=== PATIENT | male | born 1965 | race African-American/Black ===

== ENCOUNTER 2024-01-24 16:12 | Inpatient (IN) | payer MEDICAID, OTHER ==
[~2024-01-24] VITALS: Ht 182.9 cm; Wt 141.5 kg
[2024-01-24] MEDS: ONDANSETRON HCL/PF 4 MG/2 ML VIAL IV ONE (16:45)
[2024-01-24 16:46] LABS: BASOPHILS # (AUTO) 0.1 K/uL (0.0-0.2); BASOPHILS % (AUTO) 1.4 % (0.0-2.0); EOSINOPHILS # (AUTO) 0.2 K/uL (0.0-0.7); EOSINOPHILS % (AUTO) 2.2 % (0.0-6.0); HEMATOCRIT 46 % (39-51); HEMOGLOBIN 15.1 g/dL (13.5-17.5); LYMPHOCYTES % (AUTO) 22.9 % (20.0-44.0); MEAN CORPUSCULAR HEMOGLOBIN 29 PG (26.0-33.0); MEAN CORPUSCULAR HGB CONC 33 g/dl (31.0-36.0); MEAN CORPUSCULAR VOLUME 90 fL (80-96); MONOCYTES # (AUTO) 0.4 K/uL (0.1-1.30); MONOCYTES % (AUTO) 4.9 % (2.0-12.0); NEUTROPHILS # (AUTO) 5.9 K/uL (1.8-8.9); NEUTROPHILS % (AUTO) 68.6 % (43.0-81.0); PLATELET COUNT (AUTO) 273 K/uL (150-450); RED BLOOD CELL COUNT(AUTO) 5.12 MIL/uL (4.5-6.0); RED CELL DISTRIBUTION WIDTH 14.9 % (11.5-15.0); WHITE BLOOD COUNT (AUTO) 8.5 K/uL (4.3-11.0)
[2024-01-24] MEDS ORDERED: ONDANSETRON HCL/PF 4 MG/2 ML VIAL ONE (16:46)
[2024-01-24] MEDS: ENALAPRILAT INJ (1.25 MG/ML) 1.25 MG/ML VIAL IV PRN (16:48)
[2024-01-24] MEDS ORDERED: NITROGLYCERIN 0.4 MG/TAB BOTTLE ONE (16:50)
[2024-01-24] MEDS ORDERED: ENALAPRILAT INJ (1.25 MG/ML) 1.25 MG/ML VIAL IV ONE (16:50)
[2024-01-24] MEDS ORDERED: ASPIRIN 325 MG TABLET ONE (16:50)
[2024-01-24] MEDS: ASPIRIN 325 MG TABLET PO ONE (16:52)
[2024-01-24] MEDS: NITROGLYCERIN 0.4 MG/TAB BOTTLE SL ONE (16:55)
[2024-01-24 17:02] LABS: INR 0.96 (0.91-1.10); PARTIAL THROMBOPLASTIN TIME 27.6 SEC (24.3-34.3); PROTHROMBIN TIME 9.9 SECS (9.2-11.1)
[2024-01-24 17:10] LABS: ALBUMIN 3.6 g/dL (3.4-5.0); BILIRUBIN,TOTAL 0.6 mg/dL (0.2-1.0); TOTAL PROTEIN, SERUM 8.2 g/dL (6.4-8.2)
[2024-01-24 18:06] LABS: CALCIUM, SERUM 8.5 mg/dL (8.5-10.1); CARBON DIOXIDE 25 mmol/L (21-32); CHLORIDE 104 mmol/L (98-107); CREATININE 1.2 mg/dL (0.6-1.3); GLUCOSE 137 mg/dL (74-106); POTASSIUM 4.3 mmol/L (3.5-5.1); SODIUM SERUM 138 mmol/L (136-145); UREA NITROGEN, BLOOD 11 mg/dL (7-18)
[2024-01-24] MEDS ORDERED: ENOXAPARIN SODIUM 40 MG/0.4 ML DISP.SYRIN SQ ONE (18:57)
[2024-01-24] MEDS: ENOXAPARIN SODIUM 40 MG/0.4 ML DISP.SYRIN SQ SCH (18:59)
[2024-01-24] MEDS ORDERED: Z GUARD REMEDY 4 OZ OINT TP PRN (19:00)
[2024-01-24] MEDS ORDERED: MAG HYDROX/AL HYDROX/SIMETH 30 ML UDC PO PRN (19:00)
[2024-01-24] MEDS ORDERED: DEXTROSE 50%-WATER 50 ML DISP.SYRIN IV PRN (19:00)
[2024-01-24] MEDS ORDERED: MAGNESIUM HYDROXIDE 30 ML UDC PO PRN (19:00)
[2024-01-24 21:30] VITALS: BP 182/97; TEMP 97.3; O2SAT 97
[2024-01-24] MEDS: hydrALAZINE HCL 25 MG TABLET PO PRN (22:19)
[2024-01-24] MEDS: BLOOD SUGAR DIAGNOSTIC 1 EACH STRIP VI SCH (22:19)
[2024-01-24] MEDS: *INSULIN REGULAR(HUMULIN R)HUM 100 UNIT/ML VIAL SQ PRN (22:25)
[2024-01-25] MEDS: hydrALAZINE HCL IV 20 MG VIAL IV ONE (00:20)
[2024-01-25] MEDS: ONDANSETRON HCL/PF 4 MG/2 ML VIAL IVP PRN (01:05)
[2024-01-25] MEDS: ZOLPIDEM TARTRATE 5 MG TABLET PO PRN (01:08)
[2024-01-25] MEDS: METOCLOPRAMIDE HCL 10 MG/2 ML VIAL IV ONE (02:37)
[2024-01-25 04:55] VITALS: BP 176/76; TEMP 98.8; O2SAT 98
[2024-01-25 07:28] LABS: BASOPHILS # (AUTO) 0.1 K/uL (0.0-0.2); BASOPHILS % (AUTO) 0.6 % (0.0-2.0); HEMATOCRIT 46 % (39-51); HEMOGLOBIN 15.2 g/dL (13.5-17.5); LYMPHOCYTES # (AUTO) 1.1 K/uL (0.8-4.8); LYMPHOCYTES % (AUTO) 11.7 % (20.0-44.0); MEAN CORPUSCULAR HEMOGLOBIN 30 PG (26.0-33.0); MEAN CORPUSCULAR HGB CONC 33 g/dl (31.0-36.0); MEAN CORPUSCULAR VOLUME 91 fL (80-96); MONOCYTES # (AUTO) 0.3 K/uL (0.1-1.30); NEUTROPHILS # (AUTO) 7.8 K/uL (1.8-8.9); NEUTROPHILS % (AUTO) 84.7 % (43.0-81.0); PLATELET COUNT (AUTO) 261 K/uL (150-450); RED CELL DISTRIBUTION WIDTH 14.7 % (11.5-15.0); WHITE BLOOD COUNT (AUTO) 9.2 K/uL (4.3-11.0)
[2024-01-25] MEDS: INSULIN REGULAR, HUMAN 100 UNIT/ML 3 ML VIAL SQ PRN (07:39)
[2024-01-25 07:51] LABS: CALCIUM, SERUM 8.9 mg/dL (8.5-10.1); PHOSPHORUS 3.1 mg/dL (2.5-4.9); POTASSIUM 3.9 mmol/L (3.5-5.1)
[2024-01-25] MEDS: PANTOPRAZOLE 40 MG TABLET.DR PO SCH (07:51)
[2024-01-25 08:00] VITALS: BP 169/79; TEMP 98.2; O2SAT 94
[2024-01-25] MEDS: ASPIRIN 81 MG TAB.CHEW PO SCH (08:10)
[2024-01-25 08:14] LABS: THYROID STIMULATING HORMONE 0.644 uIU/mL (0.358-3.74)
[2024-01-25] MEDS: METOCLOPRAMIDE HCL 10 MG/2 ML VIAL IV SCH (11:30)
[2024-01-25] MEDS ORDERED: HYDROMORPHONE INJ 2 MG/ML DISP.SYRIN IV ONE (11:45)
[2024-01-25] MEDS ORDERED: IV NS 0.9% 1,000 ML BAG IV SCH (12:00)
[2024-01-25] MEDS: IV NS 0.9% 1,000 ML IV PRN (12:25)
[2024-01-25 16:00] VITALS: BP 161/84; TEMP 98.2; O2SAT 94
[2024-01-25] MEDS ORDERED: CLONIDINE HCL 0.1 MG TABLET PO PRN (19:00)
[2024-01-25] MEDS: ENOXAPARIN SODIUM 120 MG/0.8 ML DISP.SYRIN SQ SCH (20:51)
[2024-01-25] MEDS ORDERED: ENOXAPARIN SODIUM 40 MG/0.4 ML DISP.SYRIN SQ SCH (21:00)
[2024-01-25 22:18] VITALS: BP 141/68; TEMP 99.7; O2SAT 97
[2024-01-26 06:20] LABS: ALBUMIN 2.9 g/dL (3.4-5.0); BILIRUBIN,DIRECT 0.2 mg/dL (0.0-0.2); BILIRUBIN,TOTAL 0.8 mg/dL (0.2-1.0); CALCIUM, SERUM 8.2 mg/dL (8.5-10.1); CREATININE 1.2 mg/dL (0.6-1.3); POTASSIUM 3.4 mmol/L (3.5-5.1)
[2024-01-26 06:23] LABS: BASOPHILS # (AUTO) 0.1 K/uL (0.0-0.2); BASOPHILS % (AUTO) 0.8 % (0.0-2.0); EOSINOPHILS # (AUTO) 0.1 K/uL (0.0-0.7); EOSINOPHILS % (AUTO) 0.8 % (0.0-6.0); HEMATOCRIT 46 % (39-51); HEMOGLOBIN 15.1 g/dL (13.5-17.5); LYMPHOCYTES # (AUTO) 3.6 K/uL (0.8-4.8); LYMPHOCYTES % (AUTO) 35.5 % (20.0-44.0); MEAN CORPUSCULAR HEMOGLOBIN 30 PG (26.0-33.0); MEAN CORPUSCULAR HGB CONC 33 g/dl (31.0-36.0); MEAN CORPUSCULAR VOLUME 91 fL (80-96); MONOCYTES # (AUTO) 0.7 K/uL (0.1-1.30); MONOCYTES % (AUTO) 6.8 % (2.0-12.0); NEUTROPHILS # (AUTO) 5.7 K/uL (1.8-8.9); NEUTROPHILS % (AUTO) 56.1 % (43.0-81.0); PLATELET COUNT (AUTO) 249 K/uL (150-450); RED BLOOD CELL COUNT(AUTO) 5.01 MIL/uL (4.5-6.0); RED CELL DISTRIBUTION WIDTH 14.3 % (11.5-15.0); WHITE BLOOD COUNT (AUTO) 10.1 K/uL (4.3-11.0)
[2024-01-26 08:00] VITALS: BP 156/85; TEMP 98.2; O2SAT 94
[2024-01-26] MEDS: POTASSIUM CL. PREMIX PERIPHER. 50 ML IV SCH (09:51)
[2024-01-26] MEDS ORDERED: IOHEXOL-300 100 ML VIAL IV ONE (11:23)
[2024-01-26] MEDS ORDERED: IV NS 0.9% 250 ML IV ONE (11:24)
[2024-01-26] MEDS ORDERED: CT SWABBABLE VALVE TRANS SET 1 EA INFUS.SET MC ONE (11:24)
[2024-01-26 16:00] VITALS: BP 162/84; TEMP 99; O2SAT 98
[2024-01-26 17:30] VITALS: BP 149/79
[2024-01-26 18:02] VITALS: BP 149/79
[2024-01-26 20:00] VITALS: BP 148/75; TEMP 99; O2SAT 94
[2024-01-27] VITALS (8 sets, daily range): BP systolic 121–170; BP diastolic 69–92; TEMP 97.8–98.8; O2SAT 94–99
[2024-01-27] MEDS: ACETAMINOPHEN 325 MG TABLET PO PRN (06:25)
[2024-01-27 06:54] LABS: BASOPHILS # (AUTO) 0.1 K/uL (0.0-0.2); BASOPHILS % (AUTO) 0.8 % (0.0-2.0); EOSINOPHILS # (AUTO) 0.3 K/uL (0.0-0.7); EOSINOPHILS % (AUTO) 3.8 % (0.0-6.0); HEMATOCRIT 45 % (39-51); LYMPHOCYTES # (AUTO) 3.5 K/uL (0.8-4.8); LYMPHOCYTES % (AUTO) 42.6 % (20.0-44.0); MEAN CORPUSCULAR HEMOGLOBIN 30 PG (26.0-33.0); MEAN CORPUSCULAR HGB CONC 34 g/dl (31.0-36.0); MEAN CORPUSCULAR VOLUME 91 fL (80-96); MONOCYTES # (AUTO) 0.6 K/uL (0.1-1.30); MONOCYTES % (AUTO) 6.6 % (2.0-12.0); NEUTROPHILS # (AUTO) 3.8 K/uL (1.8-8.9); NEUTROPHILS % (AUTO) 46.2 % (43.0-81.0); PLATELET COUNT (AUTO) 246 K/uL (150-450); RED BLOOD CELL COUNT(AUTO) 4.96 MIL/uL (4.5-6.0); RED CELL DISTRIBUTION WIDTH 14.5 % (11.5-15.0); WHITE BLOOD COUNT (AUTO) 8.3 K/uL (4.3-11.0)
[2024-01-27 07:28] LABS: ALBUMIN 2.8 g/dL (3.4-5.0); BILIRUBIN,TOTAL 0.7 mg/dL (0.2-1.0); CALCIUM, SERUM 8.2 mg/dL (8.5-10.1); CREATININE 1.1 mg/dL (0.6-1.3); MAGNESIUM 2.1 mg/dL (1.8-2.4); PHOSPHORUS 3.9 mg/dL (2.5-4.9); POTASSIUM 3.5 mmol/L (3.5-5.1); TOTAL PROTEIN, SERUM 6.8 g/dL (6.4-8.2)
[2024-01-27 08:06] LABS: CARBOHYDRATE AG 19-9 <2 U/mL (0-35)
[2024-01-27 09:10] LABS: AFP, TUMOR MARKER 2.8 ng/mL (0.0-8.4)
[2024-01-27] MEDS ORDERED: CLONIDINE HCL 0.1 MG TABLET PO PRN (10:30)
[2024-01-27] MEDS: METOPROLOL TARTRATE INJ 5 MG/5 ML AMPUL IVP PRN (10:40)
[2024-01-27] MEDS ORDERED: CT SWABBABLE VALVE TRANS SET 1 EA INFUS.SET MC ONE (10:45)
[2024-01-27] MEDS ORDERED: NITROGLYCERIN 0.4 MG/TAB BOTTLE ONE (10:45)
[2024-01-27] MEDS ORDERED: METOPROLOL TARTRATE INJ 5 MG/5 ML AMPUL ONE ×2 (10:45→10:56)
[2024-01-27] MEDS ORDERED: IOHEXOL-350 100 ML VIAL IV ONE (10:45)
[2024-01-27] MEDS ORDERED: IV NS 0.9% 250 ML IV ONE (10:46)
[2024-01-27] MEDS: NITROGLYCERIN 0.4 MG/TAB BOTTLE SL ONE (10:56)
[2024-01-27] MEDS: METOPROLOL TARTRATE 50 MG TABLET PO SCH (12:42)
[2024-01-27] MEDS ORDERED: METO50TA16 PO (18:15)
[2024-01-27] MEDS ORDERED: NIFE-35 PO (18:15)
[2024-01-27] MEDS ORDERED: ASPI-1169 PO (18:15)
[2024-01-28] MEDS ORDERED: ENOXAPARIN SODIUM 40 MG/0.4 ML DISP.SYRIN SQ SCH (09:30)
== END 2024-01-27 18:47 | disposition home or self-care (01) | DRG 190 ==
LOC: EDBD 16:12 → ER 16:12 → TELE 20:34 → MED 01-25 17:06 → TELE 01-26 09:53
PROVIDERS: ADMIT Student in an Organized Health Care Education/Training Program; ATTEND Student in an Organized Health Care Education/Training Program
DX: I25.119 Atherosclerotic heart disease of native coronary artery with unspecified angina pectoris (principal); I21.A1 Myocardial infarction type 2; I25.10 Atherosclerotic heart disease of native coronary artery without angina pectoris; E11.9 Type 2 diabetes mellitus without complications; D18.03 Hemangioma of intra-abdominal structures; I16.0 Hypertensive urgency; I25.83 Coronary atherosclerosis due to lipid rich plaque; K57.30 Diverticulosis of large intestine without perforation or abscess without bleeding; K80.20 Calculus of gallbladder without cholecystitis without obstruction; K43.9 Ventral hernia without obstruction or gangrene; E66.9 Obesity, unspecified; Z68.41 Body mass index [BMI] 40.0-44.9, adult
CPT/HCPCS: 36415; 71045-TC; 71270-TC; 74178; 75574; 80048-TC; 80053-TC; 80076-TC; 82105; 82378; 82962-TC; 83690-TC; 83735-TC; 84100-TC; 84443-TC; 84484-TC; 85025-TC; 85730-TC; 86301; 93307-TC; A4223; G0378; J0360; J1650; J1815; J2405; J2765; J3480; J3490; J7030; J7050; Q9967

== ENCOUNTER 2024-05-16 21:56 | Inpatient (IN) | payer OTHER ==
[~2024-05-16] VITALS: Ht 182.9 cm; Wt 143.3 kg
[~2024-05-16 21:56] MED LIST: ASPI-1169 PO; METO50TA16 PO; NIFE-35 PO
[2024-05-16] MEDS ORDERED: NITROGLYCERIN 0.4 MG/TAB BOTTLE ONE (23:17)
[2024-05-16] MEDS ORDERED: ONDANSETRON HCL/PF 4 MG/2 ML VIAL ONE (23:17)
[2024-05-16] MEDS ORDERED: ASPIRIN 325 MG TABLET ONE (23:18)
[2024-05-16 23:27] LABS: BASOPHILS # (AUTO) 0.1 K/uL (0.0-0.2); BASOPHILS % (AUTO) 1.2 % (0.0-2.0); EOSINOPHILS % (AUTO) 0.2 % (0.0-6.0); HEMATOCRIT 44 % (39-51); HEMOGLOBIN 14.5 g/dL (13.5-17.5); LYMPHOCYTES # (AUTO) 1.4 K/uL (0.8-4.8); LYMPHOCYTES % (AUTO) 14.2 % (20.0-44.0); MEAN CORPUSCULAR HEMOGLOBIN 30 PG (26.0-33.0); MEAN CORPUSCULAR HGB CONC 33 g/dl (31.0-36.0); MEAN CORPUSCULAR VOLUME 92 fL (80-96); MONOCYTES # (AUTO) 0.3 K/uL (0.1-1.30); MONOCYTES % (AUTO) 2.7 % (2.0-12.0); NEUTROPHILS % (AUTO) 81.7 % (43.0-81.0); PLATELET COUNT (AUTO) 278 K/uL (150-450); RED BLOOD CELL COUNT(AUTO) 4.79 MIL/uL (4.5-6.0); RED CELL DISTRIBUTION WIDTH 15.2 % (11.5-15.0); WHITE BLOOD COUNT (AUTO) 9.8 K/uL (4.3-11.0)
[2024-05-16] MEDS: NITROGLYCERIN 0.4 MG/TAB BOTTLE SL ONE (23:29)
[2024-05-16] MEDS: ASPIRIN 325 MG TABLET PO ONE (23:29)
[2024-05-16] MEDS: ONDANSETRON HCL/PF 4 MG/2 ML VIAL IVP ONE (23:30)
[2024-05-16 23:59] LABS: CALCIUM, SERUM 8.6 mg/dL (8.5-10.1); CARBON DIOXIDE 23 mmol/L (21-32); CHLORIDE 102 mmol/L (98-107); GLUCOSE 184 mg/dL (74-106); POTASSIUM 3.8 mmol/L (3.5-5.1); SODIUM SERUM 138 mmol/L (136-145); UREA NITROGEN, BLOOD 9 mg/dL (7-18)
[2024-05-17 00:24] LABS: ALANINE AMINOTRANSFERASE 22 U/L (12-78); ALBUMIN 3.6 g/dL (3.4-5.0); ALKALINE PHOSPHATASE 102 U/L (46-116); ASPARTATE AMINOTRANSFERASE 13 U/L (15-37); BILIRUBIN,DIRECT 0.2 mg/dL (0.0-0.2); BILIRUBIN,TOTAL 0.6 mg/dL (0.2-1.0); NT-PRO BNP 499 pg/mL (0-125); TOTAL PROTEIN, SERUM 8.5 g/dL (6.4-8.2)
[2024-05-17 00:25] VITALS: BP 106/54; TEMP 98.2; O2SAT 96
[2024-05-17] MEDS ORDERED: ONDANSETRON HCL/PF 4 MG/2 ML VIAL ONE (00:37)
[2024-05-17] MEDS: ONDANSETRON HCL/PF 4 MG/2 ML VIAL IV ONE (00:48)
[2024-05-17] MEDS ORDERED: Z GUARD REMEDY 4 OZ OINT TP PRN (01:00)
[2024-05-17] MEDS: hydrALAZINE HCL IV 20 MG VIAL IV ONE (01:44)
[2024-05-17] MEDS: MORPHINE SULFATE INJ 2 MG/ML DISP.SYRIN IV PRN (04:30)
[2024-05-17 05:00] VITALS: BP 157/76; TEMP 97.9; O2SAT 98
[2024-05-17 07:30] VITALS: BP 174/90; TEMP 98.6; O2SAT 96
[2024-05-17 08:25] VITALS: BP 119/64; TEMP 99.1; O2SAT 95
[2024-05-17] MEDS: NIFEdipine XL (30MG) 30 MG TAB PO SCH (09:12)
[2024-05-17] MEDS: METOPROLOL TARTRATE 50 MG TABLET PO SCH (09:12)
[2024-05-17] MEDS: PANTOPRAZOLE 40 MG VIAL IV SCH (09:12)
[2024-05-17] MEDS: ASPIRIN 81 MG TAB.CHEW PO SCH (09:13)
[2024-05-17] MEDS: hydrALAZINE HCL 50 MG TABLET PO SCH (10:35)
[2024-05-17] MEDS: HYDROCHLOROTHIAZIDE 25 MG TABLET PO SCH (10:36)
[2024-05-17] MEDS: ATORVASTATIN 10 MG TABLET PO SCH (10:36)
[2024-05-17 10:45] LABS: BASOPHILS # (AUTO) 0.1 K/uL (0.0-0.2); BASOPHILS % (AUTO) 0.8 % (0.0-2.0); HEMATOCRIT 44 % (39-51); HEMOGLOBIN 14.7 g/dL (13.5-17.5); LYMPHOCYTES # (AUTO) 1.2 K/uL (0.8-4.8); LYMPHOCYTES % (AUTO) 10.5 % (20.0-44.0); MEAN CORPUSCULAR HEMOGLOBIN 31 PG (26.0-33.0); MEAN CORPUSCULAR HGB CONC 34 g/dl (31.0-36.0); MEAN CORPUSCULAR VOLUME 92 fL (80-96); MONOCYTES # (AUTO) 0.4 K/uL (0.1-1.30); MONOCYTES % (AUTO) 3.6 % (2.0-12.0); NEUTROPHILS # (AUTO) 9.8 K/uL (1.8-8.9); NEUTROPHILS % (AUTO) 85.1 % (43.0-81.0); PLATELET COUNT (AUTO) 268 K/uL (150-450); RED BLOOD CELL COUNT(AUTO) 4.78 MIL/uL (4.5-6.0); RED CELL DISTRIBUTION WIDTH 14.8 % (11.5-15.0); WHITE BLOOD COUNT (AUTO) 11.5 K/uL (4.3-11.0)
[2024-05-17 10:55] LABS: CALCIUM, SERUM 8.5 mg/dL (8.5-10.1); CREATININE 0.8 mg/dL (0.6-1.3); POTASSIUM 3.8 mmol/L (3.5-5.1)
[2024-05-17 11:01] LABS: ALBUMIN 3.3 g/dL (3.4-5.0); BILIRUBIN,TOTAL 0.7 mg/dL (0.2-1.0); MAGNESIUM 2.3 mg/dL (1.8-2.4); PHOSPHORUS 3.4 mg/dL (2.5-4.9); TOTAL PROTEIN, SERUM 8.1 g/dL (6.4-8.2)
[2024-05-17] MEDS: ONDANSETRON HCL/PF 4 MG/2 ML VIAL IVP PRN (14:36)
[2024-05-17] MEDS: MAG HYDROX/AL HYDROX/SIMETH 30 ML UDC PO PRN (15:36)
[2024-05-17] MEDS: ACETAMINOPHEN 325 MG TABLET PO PRN (15:36)
[2024-05-17 16:00] VITALS: BP 164/71; TEMP 98.6; O2SAT 95
[2024-05-17] MEDS: NITROGLYCERIN 0.4 MG/TAB BOTTLE SL PRN (16:58)
[2024-05-17] MEDS ORDERED: HEPARIN INFUSION/D5W 500 ML IV PRN (17:00)
[2024-05-17 17:31] LABS: INR 0.99 (0.91-1.10); PARTIAL THROMBOPLASTIN TIME 29.4 SEC (24.3-34.3); PROTHROMBIN TIME 10.5 SECS (9.2-11.1)
[2024-05-17] MEDS: predniSONE 20 MG TABLET PO ONE (20:39)
[2024-05-18] MEDS: predniSONE 20 MG TABLET PO ONE ×2 (03:32→08:56)
[2024-05-18 04:30] VITALS: BP 131/73; TEMP 98.4; O2SAT 98
[2024-05-18 06:46] LABS: BASOPHILS % (AUTO) 0.4 % (0.0-2.0); HEMATOCRIT 48 % (39-51); HEMOGLOBIN 16.2 g/dL (13.5-17.5); LYMPHOCYTES # (AUTO) 1.1 K/uL (0.8-4.8); LYMPHOCYTES % (AUTO) 10.4 % (20.0-44.0); MEAN CORPUSCULAR HEMOGLOBIN 31 PG (26.0-33.0); MEAN CORPUSCULAR HGB CONC 34 g/dl (31.0-36.0); MEAN CORPUSCULAR VOLUME 91 fL (80-96); MONOCYTES # (AUTO) 0.2 K/uL (0.1-1.30); MONOCYTES % (AUTO) 1.5 % (2.0-12.0); NEUTROPHILS # (AUTO) 9.5 K/uL (1.8-8.9); NEUTROPHILS % (AUTO) 87.7 % (43.0-81.0); PLATELET COUNT (AUTO) 310 K/uL (150-450); RED BLOOD CELL COUNT(AUTO) 5.21 MIL/uL (4.5-6.0); RED CELL DISTRIBUTION WIDTH 15.1 % (11.5-15.0); WHITE BLOOD COUNT (AUTO) 10.9 K/uL (4.3-11.0)
[2024-05-18 07:11] LABS: CALCIUM, SERUM 8.5 mg/dL (8.5-10.1); CREATININE 1.2 mg/dL (0.6-1.3); MAGNESIUM 2.6 mg/dL (1.8-2.4); PHOSPHORUS 4.4 mg/dL (2.5-4.9)
[2024-05-18 08:00] VITALS: BP 146/77; TEMP 99; O2SAT 98
[2024-05-18] MEDS ORDERED: IV SET PRIMARY PUMP SET 1 EA INFUS.SET MC ONE (08:36)
[2024-05-18] MEDS ORDERED: IODIXANOL 150 ML IV ONE (08:36)
[2024-05-18] MEDS ORDERED: LIDOCAINE HCL/MPF 1% 30 ML VIAL IJ ONE (08:36)
[2024-05-18] MEDS ORDERED: IV NS 0.9% 500 ML IV ONE (08:36)
[2024-05-18] MEDS ORDERED: NITROGLYCERIN IN 5 % DEXTROSE 250 ML IV ONE (08:37)
[2024-05-18] MEDS: PANTOPRAZOLE 40 MG TABLET.DR PO SCH (08:55)
[2024-05-18] MEDS ORDERED: MIDAZOLAM HCL 2 MG/2ML VIAL ONE (09:32)
[2024-05-18] MEDS ORDERED: FENTANYL PF 100MCG/2ML AMPUL ONE (09:32)
[2024-05-18 12:00] VITALS: BP 126/67; TEMP 98.1; O2SAT 97
[2024-05-18 16:00] VITALS: BP 127/60; TEMP 99.3; O2SAT 94
[2024-05-18 20:00] VITALS: BP 156/83; TEMP 98.1; O2SAT 97
[2024-05-18] MEDS ORDERED: ROSU20TA2 PO (20:18)
[2024-05-18] MEDS: MAGNESIUM HYDROXIDE 30 ML UDC PO PRN (20:21)
[2024-05-19] VITALS (8 sets, daily range): BP systolic 118–190; BP diastolic 58–93; TEMP 98.1–98.7; O2SAT 93–100
[2024-05-19 06:46] LABS: BASOPHILS % (AUTO) 0.1 % (0.0-2.0); HEMATOCRIT 46 % (39-51); HEMOGLOBIN 15.3 g/dL (13.5-17.5); LYMPHOCYTES # (AUTO) 1.3 K/uL (0.8-4.8); LYMPHOCYTES % (AUTO) 9.9 % (20.0-44.0); MEAN CORPUSCULAR HEMOGLOBIN 30 PG (26.0-33.0); MEAN CORPUSCULAR HGB CONC 33 g/dl (31.0-36.0); MEAN CORPUSCULAR VOLUME 91 fL (80-96); MONOCYTES # (AUTO) 0.9 K/uL (0.1-1.30); MONOCYTES % (AUTO) 6.7 % (2.0-12.0); NEUTROPHILS # (AUTO) 10.6 K/uL (1.8-8.9); NEUTROPHILS % (AUTO) 83.3 % (43.0-81.0); PLATELET COUNT (AUTO) 301 K/uL (150-450); RED BLOOD CELL COUNT(AUTO) 5.04 MIL/uL (4.5-6.0); RED CELL DISTRIBUTION WIDTH 14.7 % (11.5-15.0); WHITE BLOOD COUNT (AUTO) 12.8 K/uL (4.3-11.0)
[2024-05-19 07:08] LABS: PHOSPHORUS 2.6 mg/dL (2.5-4.9); POTASSIUM 3.6 mmol/L (3.5-5.1)
[2024-05-19 07:25] LABS: CALCIUM, SERUM 8.2 mg/dL (8.5-10.1)
[2024-05-19] MEDS ORDERED: DEXTROSE 50%-WATER 50 ML DISP.SYRIN IV PRN (12:00)
[2024-05-19] MEDS: BLOOD SUGAR DIAGNOSTIC 1 EACH STRIP IN SCH (13:14)
[2024-05-19] MEDS: INSULIN REGULAR, HUMAN 100 UNIT/ML 3 ML VIAL SQ PRN (13:15)
[2024-05-19] MEDS: MORPHINE SULFATE INJ 2 MG/ML DISP.SYRIN IV PRN (15:27)
[2024-05-20] VITALS: BP 129/68; TEMP 98.1; O2SAT 98
[2024-05-20 04:00] VITALS: BP 132/77; TEMP 97.9; O2SAT 98
[2024-05-20 07:06] LABS: BASOPHILS % (AUTO) 0.2 % (0.0-2.0); EOSINOPHILS % (AUTO) 0.5 % (0.0-6.0); HEMATOCRIT 47 % (39-51); HEMOGLOBIN 15.7 g/dL (13.5-17.5); LYMPHOCYTES # (AUTO) 3.5 K/uL (0.8-4.8); LYMPHOCYTES % (AUTO) 35.4 % (20.0-44.0); MEAN CORPUSCULAR HEMOGLOBIN 31 PG (26.0-33.0); MEAN CORPUSCULAR HGB CONC 34 g/dl (31.0-36.0); MEAN CORPUSCULAR VOLUME 92 fL (80-96); MONOCYTES % (AUTO) 10.5 % (2.0-12.0); NEUTROPHILS # (AUTO) 5.3 K/uL (1.8-8.9); NEUTROPHILS % (AUTO) 53.4 % (43.0-81.0); PLATELET COUNT (AUTO) 293 K/uL (150-450); RED BLOOD CELL COUNT(AUTO) 5.13 MIL/uL (4.5-6.0); RED CELL DISTRIBUTION WIDTH 14.7 % (11.5-15.0); WHITE BLOOD COUNT (AUTO) 9.8 K/uL (4.3-11.0)
[2024-05-20 07:40] LABS: CALCIUM, SERUM 8.3 mg/dL (8.5-10.1); CREATININE 1.1 mg/dL (0.6-1.3); POTASSIUM 3.4 mmol/L (3.5-5.1)
[2024-05-20 08:00] VITALS: BP 129/68; TEMP 98.2; O2SAT 98
[2024-05-20] MEDS: POTASSIUM CHLORIDE 20 MEQ TAB.PRT.SR PO SCH (11:21)
[2024-05-20 12:00] VITALS: BP 108/67; TEMP 98.8; O2SAT 98
[2024-05-20 16:00] VITALS: BP 119/68; TEMP 98.4; O2SAT 96
[2024-05-20 20:00] VITALS: BP 115/64; TEMP 98.6; O2SAT 98
[2024-05-21] VITALS: BP 111/70; TEMP 98.6; O2SAT 93
[2024-05-21 04:00] VITALS: BP 121/66; TEMP 98.4; O2SAT 96
[2024-05-21 08:13] VITALS: BP 129/70; TEMP 97.9; O2SAT 97
[2024-05-21 08:16] LABS: CALCIUM, SERUM 8.3 mg/dL (8.5-10.1); CREATININE 1.1 mg/dL (0.6-1.3); POTASSIUM 3.6 mmol/L (3.5-5.1)
[2024-05-21 08:17] VITALS: BP 129/70; TEMP 97.9; O2SAT 96
[2024-05-21 17:30] VITALS: BP 125/70; TEMP 98.2; O2SAT 97
== END 2024-05-21 18:00 | disposition short-term general hospital (02) | DRG 191 ==
LOC: ER 22:00 → TELE 05-17 00:30
PROVIDERS: ADMIT Nurse Practitioner Acute Care; ATTEND Nurse Practitioner Acute Care
PROC: 4A023N7 Measurement of Cardiac Sampling and Pressure, Left Heart, Percutaneous Approach (ICD-10-PCS; principal; 2024-05-18)
PROC: B211YZZ Fluoroscopy of Multiple Coronary Arteries using Other Contrast (ICD-10-PCS; 2024-05-18)
DX: I25.110 Atherosclerotic heart disease of native coronary artery with unstable angina pectoris (principal); I50.33 Acute on chronic diastolic (congestive) heart failure; E44.1 Mild protein-calorie malnutrition; I11.0 Hypertensive heart disease with heart failure; D18.03 Hemangioma of intra-abdominal structures; E11.9 Type 2 diabetes mellitus without complications; K21.9 Gastro-esophageal reflux disease without esophagitis; E66.01 Morbid (severe) obesity due to excess calories; Z68.41 Body mass index [BMI] 40.0-44.9, adult; E78.5 Hyperlipidemia, unspecified; F17.210 Nicotine dependence, cigarettes, uncomplicated; R11.2 Nausea with vomiting, unspecified; Z79.82 Long term (current) use of aspirin; Z91.199 Patient's noncompliance with other medical treatment and regimen due to unspecified reason; Z91.041 Radiographic dye allergy status; E88.09 Other disorders of plasma-protein metabolism, not elsewhere classified
CPT/HCPCS: 36415; 71045-TC; 80048-TC; 80053-TC; 80061-TC; 80076-TC; 82962-TC; 83690-TC; 83735-TC; 83880; 84100-TC; 84484-TC; 85025-TC; 85610-TC; 85730-TC; 93880-TC; A4223; G0378; J0360; J1644; J1815; J2250; J2270; J2405; J2470; J3010; J3490; J7040; Q9967